=== PATIENT | male | born 1945 | race Caucasian/White ===

== ENCOUNTER → 2024-11-25 09:26 | Outpatient (REF) | payer OTHER, SELFPAY | LOC: EMG 09:26 | PROVIDERS: ATTENDING PHYSICIAN Orthopaedic Surgery Hand Surgery; FAMILY PHYSICIAN Family Medicine | DX: G56.02 Carpal tunnel syndrome, left upper limb (principal); R20.0 Anesthesia of skin | CPT/HCPCS: 95886; 95909 ==